=== PATIENT | male | born 1965 | race Caucasian/White ===

== ENCOUNTER 2016-12-09 22:11 | Inpatient (IN) | payer OTHER ==
[~2016-12-09] VITALS: Ht 170.2 cm; Wt 65.4 kg
[~2016-12-09 22:11] MED LIST: AMLODIPINE BESY10 M1 PO; AMLODIPINE BESYL5 M1 PO; ATENOLOL100 MG PO; ATENOLOL25 MG PO; CLONIDINE HCL0.1 MG PO; FERROUS SULFAT325 M2 PO; HYDRALAZINE HCL25 MG PO; NEPHRO-VITE VITA1 EA PO; OMEPRAZOLE DR20 M1 PO; PENICILLIN VK500 MG PO; RENVELA800 M1 PO; SIMVASTATIN20 M1 PO; TAMSULOSIN HYD0.4 M1 PO
[2016-12-09 23:12] LABS: BASOPHIL % 0.2 % (0-2); PLATELET COUNT 194 x10^3mcL (130-400)
[2016-12-09 23:13] LABS: RED CELL DISTRIBUTION WIDTH 16.5 % (11.5-14.5)
[2016-12-09 23:28] LABS: BILIRUBIN TOTAL 1.6 mg/dL (0.20-1.00); CALCIUM 8.1 mg/dL (8.5-10.1); CARBON DIOXIDE 31.5 mmol/L (21-32); TOTAL PROTEIN, SERUM 6.5 g/dL (6.4-8.2)
[2016-12-09 23:29] LABS: ALBUMIN 2.8 g/dL (3.4-5.0); CHOLESTEROL/HDL RATIO 6.8
[2016-12-09 23:31] LABS: CREATININE SERUM 8.2 mg/dL (0.7-1.3)
[2016-12-09 23:43] LABS: FREE T4 0.93 ng/dL (0.76-1.46); FREE THYROXINE INDEX 2.6 ug/dL (1.4-4.5); T4(THYROXINE) 6.4 ug/dL (4.7-13.3)
[2016-12-10 00:25] LABS: T3 TOTAL 0.55 ng/mL
[2016-12-10 00:45] VITALS: BP 170/77
[2016-12-10 01:11] LABS: MAGNESIUM 2.5 mg/dL (1.8-2.4); PHOSPHOROUS 1.7 mg/dL (2.5-4.9)
[2016-12-10 01:13] LABS: CHOLESTEROL/HDL RATIO 6.6
[2016-12-10] MEDS ORDERED: GABAPENTIN100 M2 PO (01:44)
[2016-12-10 05:47] VITALS: BP 160/70
[2016-12-10 09:22] LABS: AMPHETAMINE QUAL UR NONE DETECTED (NEG <=1000)
[2016-12-10 09:27] LABS: microscopic required? YES; urine erythrocyte TRACE (NEGATIVE)
[2016-12-10 10:14] VITALS: BP 154/66
[2016-12-10 13:44] VITALS: BP 142/70
[2016-12-10 17:44] VITALS: BP 128/71
[2016-12-10 21:03] VITALS: BP 157/66
[2016-12-11] VITALS (7 sets, daily range): BP systolic 154–175; BP diastolic 68–77
[2016-12-11 06:12] LABS: BASOPHIL % 0.5 % (0-2); PLATELET COUNT 225 x10^3mcL (130-400)
[2016-12-11 06:18] LABS: CALCIUM 8.1 mg/dL (8.5-10.1); CARBON DIOXIDE 26.5 mmol/L (21-32); POTASSIUM SERUM 4.7 mmol/L (3.5-5.1)
[2016-12-11 06:45] LABS: RED CELL DISTRIBUTION WIDTH 16.9 % (11.5-14.5)
[2016-12-11 11:08] LABS: IRON 126 ug/dL (65-170)
[2016-12-11 11:13] LABS: TOTAL IRON BINDING CAPACITY 151 ug/dL (250-450)
[2016-12-12 05:24] VITALS: BP 165/73
[2016-12-12 06:22] LABS: CARBON DIOXIDE 24.9 mmol/L (21-32); MAGNESIUM 2.3 mg/dL (1.8-2.4); PHOSPHOROUS 2.6 mg/dL (2.5-4.9); POTASSIUM SERUM 4.2 mmol/L (3.5-5.1)
[2016-12-12 06:36] LABS: CREATININE SERUM 9.4 mg/dL (0.7-1.3)
[2016-12-12 06:55] LABS: BASOPHIL % 0.9 % (0-2); PLATELET COUNT 235 x10^3mcL (130-400)
[2016-12-12 07:08] LABS: RED CELL DISTRIBUTION WIDTH 16.9 % (11.5-14.5)
[2016-12-12 08:30] VITALS: BP 151/79
[2016-12-12] MEDS ORDERED: ACT15 PO (10:34)
[2016-12-12] MEDS ORDERED: PRI20 PO (10:49)
[2016-12-12 11:24] VITALS: BP 151/79
[2016-12-12] MEDS ORDERED: NOR10 PO (11:35)
[2016-12-12] MEDS ORDERED: CEPACOL SORE TH1 LO4 MM (12:48)
== END 2016-12-12 14:41 | disposition home or self-care (01) | DRG 391 ==
LOC: ED 22:11 → DU 12-10 00:01
PROVIDERS: Specialist; ADMIT Family Medicine
DX: K21.9 Gastro-esophageal reflux disease without esophagitis (principal); N18.6 End stage renal disease; N17.0 Acute kidney failure with tubular necrosis; E43 Unspecified severe protein-calorie malnutrition; I12.0 Hypertensive chronic kidney disease with stage 5 chronic kidney disease or end stage renal disease; E87.1 Hypo-osmolality and hyponatremia; E11.40 Type 2 diabetes mellitus with diabetic neuropathy, unspecified; E11.51 Type 2 diabetes mellitus with diabetic peripheral angiopathy without gangrene; E78.5 Hyperlipidemia, unspecified; D63.1 Anemia in chronic kidney disease; E83.41 Hypermagnesemia; E83.39 Other disorders of phosphorus metabolism; Z68.22 Body mass index [BMI] 22.0-22.9, adult; Z79.84 Long term (current) use of oral hypoglycemic drugs; Z99.2 Dependence on renal dialysis
CPT/HCPCS: 82962; 83880; 84439; J7030; Q0092

== ENCOUNTER 2018-03-27 09:10 | Inpatient (IN) | payer OTHER ==
[~2018-03-27] VITALS: Ht 172.7 cm; Wt 64.0 kg
[~2018-03-27 09:10] MED LIST changes: +ACT15 PO; +CEPACOL SORE TH1 LO4 MM; +GABAPENTIN100 M2 PO; +NOR10 PO; +PRI20 PO
[2018-03-27 09:20] VITALS: Ht 172.7 cm; Wt 64.0 kg
[2018-03-27 10:32] LABS: BASOPHIL % 1.1 % (0-2); PLATELET COUNT 189 x10^3mcL (130-400)
[2018-03-27 10:50] LABS: ALBUMIN 3.7 g/dL (3.4-5.0); BILIRUBIN TOTAL 0.6 mg/dL (0.20-1.00); CARBON DIOXIDE 32.8 mmol/L (21-32); POTASSIUM SERUM 4.3 mmol/L (3.5-5.1); TOTAL PROTEIN, SERUM 7.6 g/dL (6.4-8.2)
[2018-03-27 10:53] LABS: CREATININE SERUM 5.7 mg/dL (0.7-1.3)
[2018-03-27 10:59] LABS: RED CELL DISTRIBUTION WIDTH 14.7 % (11.5-14.5)
[2018-03-27 13:29] VITALS: BP 219/68
[2018-03-27 14:11] LABS: CHOLESTEROL/HDL RATIO 1.4
[2018-03-27 14:17] LABS: T3 TOTAL 0.83 ng/mL
[2018-03-27 14:21] LABS: FREE T4 0.99 ng/dL (0.76-1.46); FREE THYROXINE INDEX 2.6 ug/dL (1.4-4.5); T4(THYROXINE) 6.8 ug/dL (4.7-13.3)
[2018-03-27 16:14] VITALS: BP 153/79
[2018-03-27 19:41] VITALS: BP 135/84
[2018-03-27 21:09] LABS: BASOPHIL % 1.5 % (0-2); PLATELET COUNT 183 x10^3mcL (130-400)
[2018-03-27 21:13] LABS: RED CELL DISTRIBUTION WIDTH 14.7 % (11.5-14.5)
[2018-03-27 21:24] LABS: IRON 206 ug/dL (65-170); TOTAL IRON BINDING CAPACITY 204 ug/dL (250-450)
[2018-03-27 21:34] LABS: RED BLOOD CELLS 3.81 M/mm3 (4.52-5.90)
[2018-03-27 22:11] LABS: microscopic required? YES; urine erythrocyte NEGATIVE (NEGATIVE)
[2018-03-27 22:20] LABS: AMPHETAMINE QUAL UR NONE DETECTED (See below)
[2018-03-28 05:11] VITALS: BP 202/96
[2018-03-28 06:19] LABS: BASOPHIL % 1.5 % (0-2); PLATELET COUNT 184 x10^3mcL (130-400)
[2018-03-28 06:40] LABS: RED CELL DISTRIBUTION WIDTH 14.8 % (11.5-14.5)
[2018-03-28 06:47] LABS: CALCIUM 8.8 mg/dL (8.5-10.1); CARBON DIOXIDE 32.7 mmol/L (21-32); MAGNESIUM 2.7 mg/dL (1.8-2.4); PHOSPHOROUS 4.7 mg/dL (2.5-4.9); POTASSIUM SERUM 5.3 mmol/L (3.5-5.1)
[2018-03-28 06:48] LABS: CREATININE SERUM 8.9 mg/dL (0.7-1.3)
[2018-03-28 07:54] VITALS: BP 196/85
[2018-03-28 09:29] VITALS: BP 188/90
[2018-03-28 12:05] VITALS: BP 154/78
[2018-03-28 13:08] VITALS: BP 134/68
[2018-03-28 13:26] VITALS: BP 134/68
== END 2018-03-28 15:38 | disposition home or self-care (01) | DRG 377 ==
LOC: ED 09:10 → DU 12:32
PROVIDERS: Emergency Medicine; Family Medicine
DX: K57.33 Diverticulitis of large intestine without perforation or abscess with bleeding (principal); N18.6 End stage renal disease; I12.0 Hypertensive chronic kidney disease with stage 5 chronic kidney disease or end stage renal disease; E11.22 Type 2 diabetes mellitus with diabetic chronic kidney disease; E11.42 Type 2 diabetes mellitus with diabetic polyneuropathy; K21.9 Gastro-esophageal reflux disease without esophagitis; F10.10 Alcohol abuse, uncomplicated; D53.9 Nutritional anemia, unspecified; K64.8 Other hemorrhoids; Y90.9 Presence of alcohol in blood, level not specified; Z68.23 Body mass index [BMI] 23.0-23.9, adult; Z87.891 Personal history of nicotine dependence
CPT/HCPCS: 82962; 84439; J0360; J3490; J7030